=== PATIENT | male | born 1955 | race Caucasian/White ===

== ENCOUNTER 2019-05-28 17:00 | Inpatient (IN) | payer MEDICARE, MEDICAID ==
[2019-05-28] MEDS ORDERED: Magnesium Hydroxide (MOM) 30 mL UDC PO PRN (21:10)
[2019-05-28] MEDS ORDERED: Haloperidol Lactate 5 mg/mL 1mL Vial IM ONE (21:17)
--- NOTE | 2019-05-29 07:10 | Psychiatric Evaluation ---
DATE OF SERVICE: 05/29/2019 PSYCHIATRIC INITIAL EVALUATION AND MENTAL STATUS EXAMINATION Age: 63. SEX: Male. PHYSICIAN: Dr. Wilder. CHIEF COMPLAINT: Agitation and aggressive behavior. HISTORY OF PRESENT ILLNESS: The patient is a 63-year-old male with multiple medical issues. The patient was transferred from [facility] to [facility] because of increased agitation and possible depression. The patient has been agitated and the patient was aggressive with the staff and was trying to hit them and yell and scream, when they were trying to help him, he has tried to strike them out. The patient also was striking out at staff at the [facility] where he was living prior to his admission. Also, has been extremely angry. The patient was given emergency injection of Haldol, Ativan and Benadryl to calm him down last night upon admission. The patient is still uncooperative and angry and he was not giving me information except little and the most information obtained from the chart. 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 Also, has a swollen right leg and edematous and it seems that also might have infection there. The patient also has a history of hypertension and hepatitis C, congestive heart failure, gastroesophageal reflux disease, chronic obstructive pulmonary disease and morbid obesity. The patient is living in [facility] in [place] and he has been in angry mood lately. Also, he was having altered speech and altered mental status when he was transferred to [facility]. The patient is still extremely angry and he also seems to be suspicious and paranoid at this time. PAST PSYCHIATRIC HISTORY: The patient seems to have history of depression and the patient is taking Cymbalta. PAST MEDICAL HISTORY: As mentioned above. CHEMICAL DEPENDENCY HISTORY: No reports. PAIN ASSESSMENT: The patient is complaining of pain in different areas of his body, especially his right leg. LEGAL HISTORY: No reports. ABUSE HISTORY: No reports. CURRENT PSYCH MEDICATIONS: Cymbalta 60 mg every day. SOCIAL HISTORY: The patient lives in [facility]. No more information about family or children. FAMILY PSYCHIATRIC HISTORY: No reports. ALLERGIES: No reports. MENTAL STATUS EXAMINATION: The patient appears older than his stated age. Morbidly obese. Anxious. Flat affect. Depressed and irritable mood. Uncooperative. Guarded. Thought processes are with poverty of speech. The patient did not answer question regarding hallucinations or delusions or regarding suicide or homicide, but he is extremely angry and aggressive. Poor insight and poor judgment. The patient is alert and oriented to time, place, person, and situation. Intact immediate, recent and remote memories. ASSESSMENT: PRIMARY DIAGNOSIS: Depressive mood disorder, unspecified, severe, with psychotic features. Rule out bipolar disorder, depressed episode. MEDICAL DIAGNOSES: 1. Above knee amputation of left leg. 2. Hypertension. 3. Hepatitis C. 4. Chronic obstructive pulmonary disease. 5. Gastroesophageal reflux disease. 6. Edema of the right leg with infection. TREATMENT PLAN: We will continue Cymbalta. We will add Seroquel and we will adjust the dose and we will monitor the condition of his blood sugar and monitor his blood sugar. Also, we will continue to monitor his behavior. ESTIMATED LENGTH OF STAY: 5-7 days. PATIENT'S STRENGTHS AND WEAKNESSES: The patient's strength is not clear at this time except that his memory is fair. Weaknesses are his poor judgment and poor impulse control. AFTER DISCHARGE PLAN: The patient will return to the detention, most probably. Also, outpatient treatment and followup will continue as an outpatient. CRITERIA FOR DISCHARGE: Better impulse control and stabilize psychotropic medications and establish outpatient treatment plans. JOB# [id number]
[2019-05-29 08:22] VITALS: BP 146/75
[2019-05-29] MEDS: Sulfamethoxazole/TMP 800/160mg Tab PO SCH ×2 (09:51→17:18)
--- NOTE | 2019-05-29 13:38 | Consultation ---
DATE OF CONSULTATION: 05/29/19 INTERNAL MEDICINE CONSULTATION CHIEF COMPLAINT: Agitation. HISTORY OF PRESENT ILLNESS: I am seeing this patient at the request of psychiatrist for co-medical management. The patient was recently admitted at [facility] for delusions and agitation. The patient has multiple medical problems that need to be managed. The patient has a history of major depression, CHF, hypertension, COPD, transaminitis, back pain, left AKA, hyperglycemia, constipation, insomnia, obesity, GERD. At this time, the patient is somnolent, but has no specific pain. The patient denies any fevers, chills, night sweats, headaches or dizziness. PAST MEDICAL HISTORY: 1. CHF. 2. Hypertension. 3. COPD. 4. Transaminitis. 5. Chronic lumbago. 6. Left AKA. 7. Hyperglycemia. 8. Opiate dependence. 9. Insomnia. 10. Obesity. 11. GERD. PAST SURGICAL HISTORY: As mentioned above. MEDICATIONS: List reviewed. ALLERGIES: None. SOCIAL HISTORY: Tobacco, IV drugs, ETOH negative. REVIEW OF SYSTEMS: Unremarkable. PHYSICAL EXAMINATION: VITAL SIGNS: Temperature is 98.4, pulse 99, respirations 19, blood pressure is 145/77, satting 96% on room air. HEENT: Normocephalic, atraumatic head exam. NECK: Supple. CARDIOVASCULAR: Regular rate and rhythm. LUNGS: Decreased breath sounds. ABDOMEN: Soft, nontender. EXTREMITIES: Has cellulitis of the right leg. ASSESSMENT AND PLAN: 1. Right leg cellulitis. 2. Left above-knee amputation. 3. Chronic obstructive pulmonary disease. 4. Hypertension. 5. Congestive heart failure. 6. Insomnia. 7. Gastroesophageal reflux disease. The patient will be continued on Bactrim double strength b.i.d. The patient will continue with Lasix 40 mg p.o. daily, alcohol management with a psychiatrist. I reviewed the entire medical records. JOB# [id number] ISMAEL
[2019-05-30] MEDS ORDERED: Maalox 30 mL Cup PO PRN (02:46)
[2019-05-30] MEDS ORDERED: Fleet Enema 135 mL RC PRN (07:34)
[2019-05-30] MEDS: Pantoprazole 40 mg EC Tab PO SCH ×2 (08:18→09:30)
[2019-05-30] MEDS ORDERED: CHOLECALCIFEROL 2000 UNIT PO SCH (09:00)
[2019-05-30] MEDS ORDERED: Non-Formulary Item 1 EA (Lactulose [Lactulose] 30 ML) PO SCH (09:00)
[2019-05-30] MEDS ORDERED: LACTOBACILLUS RHAMNOSUS GG PO SCH (09:00)
[2019-05-30] MEDS ORDERED: FLUTICASONE PROPIONATE 16 GM NS SCH (09:00)
[2019-05-30] MEDS ORDERED: POTASSIUM CHLORIDE 10 MEQ PO SCH (09:00)
[2019-05-30] MEDS: Vitamin D3 2,000 IU SGL PO SCH (09:30)
[2019-05-30] MEDS: Aspirin 81mg Chewable Tab PO SCH (09:30)
[2019-05-30] MEDS: Sulfamethoxazole/TMP 800/160mg Tab PO SCH ×2 (09:30→17:02)
[2019-05-30] MEDS: Potassium Chloride 10 mEq ER Tab PO SCH (09:30)
[2019-05-30] MEDS: Lactobacillus Rhamnosus GG 15 Billion CFU CAP.SPRINK PO SCH (09:30)
[2019-05-30] MEDS: Fluticasone Propionate Nasal 1 SPR SPR NS SCH (09:30)
[2019-05-30] MEDS: Lactulose 10 Gm/15 mL 30mL UDC PO SCH ×3 (09:30→20:51)
--- NOTE | 2019-05-30 21:07 | Progress Notes ---
DATE: 05/30/2019 SUBJECTIVE: Staff was spoken to. The patient is interviewed. Mood is noted to be irritable. Affect is constricted. The patient is very dysphoric at this time. The patient is anxious. The patient is reported to have GI bleeding and hence the patient has been ordered by ____ to be transferred to the medical unit for further care. JOB# [id number]
[2019-05-30] MEDS: Hydrocodone/APAP 10 mg/325 mg Tab PO PRN (21:57)
[2019-05-31] MEDS: Hydrocodone/APAP 10 mg/325 mg Tab PO PRN (02:05)
[2019-05-31] MEDS: Fluticasone Propionate Nasal 1 SPR SPR NS SCH (10:00)
[2019-05-31] MEDS: Pantoprazole 40 mg EC Tab PO SCH (10:00)
[2019-05-31] MEDS: Sulfamethoxazole/TMP 800/160mg Tab PO SCH ×2 (10:00→16:13)
[2019-05-31] MEDS: Lactobacillus Rhamnosus GG 15 Billion CFU CAP.SPRINK PO SCH (10:00)
[2019-05-31] MEDS: Aspirin 81mg Chewable Tab PO SCH (10:00)
[2019-05-31] MEDS: Potassium Chloride 10 mEq ER Tab PO SCH (10:00)
[2019-05-31] MEDS: Vitamin D3 2,000 IU SGL PO SCH (10:00)
[2019-05-31] MEDS: Lactulose 10 Gm/15 mL 30mL UDC PO SCH ×3 (10:03→20:53)
--- NOTE | 2019-05-31 10:52 | Progress Notes ---
DATE: 05/31/2019 SUBJECTIVE: Staff was spoken to. The patient is interviewed. Mood is noted to be depressed. Affect is constricted. The patient's insight and judgment are noted to be still impaired. Impulse control is noted to be limited. The patient has been stating that he believes in God, but all he did was trying to get some attention because he could not tolerate being isolative. The patient is stating that because of COVID-19 they have been cleaning the place and they have put two pungent cleaning solutions that made him upset. The patient has been stating that he wants to go back to [facility] when he is stabilized, the patient at this time is being closely monitored for any suicidal gestures. ASSESSMENT: The patient is still depressed. PLAN: To continue the patient with the current medications and followup. JOB# [id number]
[2019-06-01] MEDS: Hydrocodone/APAP 10 mg/325 mg Tab PO PRN ×4 (04:18→23:28)
[2019-06-01] MEDS: Lactulose 10 Gm/15 mL 30mL UDC PO SCH ×3 (08:47→20:45)
[2019-06-01] MEDS: Lactobacillus Rhamnosus GG 15 Billion CFU CAP.SPRINK PO SCH (08:59)
[2019-06-01] MEDS: Sulfamethoxazole/TMP 800/160mg Tab PO SCH ×2 (08:59→16:21)
[2019-06-01] MEDS: Potassium Chloride 10 mEq ER Tab PO SCH (08:59)
[2019-06-01] MEDS: Vitamin D3 2,000 IU SGL PO SCH (08:59)
[2019-06-01] MEDS: Pantoprazole 40 mg EC Tab PO SCH (08:59)
[2019-06-01] MEDS: Aspirin 81mg Chewable Tab PO SCH (09:00)
[2019-06-01] MEDS: Fluticasone Propionate Nasal 1 SPR SPR NS SCH (09:40)
--- NOTE | 2019-06-01 15:16 | Progress Notes ---
DATE: 06/01/2019 SUBJECTIVE: No complaints. No fevers, chills, night sweats. The patient's hemoptysis, resolved. The patient recently went into ER for hemoptysis. Chest x-ray was unremarkable. CBC unremarkable. The patient was sent back to [facility]. OBJECTIVE: VITAL SIGNS: Temperature is 97.7, pulse 80, respirations 20, blood pressure 103/61. HEENT: Normocephalic, atraumatic head exam. NECK: Supple. CARDIOVASCULAR: Regular rate and rhythm. LUNGS: Clear. ABDOMEN: Soft, nontender. ASSESSMENT AND PLAN: 1. Hemoptysis secondary to bronchitis. 2. Left qigih-uop-zivu amputation. 3. Hypertension. 4. Congestive heart failure. 5. Insomnia. 6. Gastroesophageal reflux disease. The patient will continue with Bactrim double strength b.i.d. The patient will continue on Lasix 40 mg daily. The patient will continue on Aldactone 25 daily and the patient's care was discussed with the ER physician at [facility] before transfer. Discussed care plan with nursing staff here. JOB# [id number]
--- NOTE | 2019-06-01 21:16 | Progress Notes ---
DATE: 06/01/2019 PSYCHIATRIC PROGRESS NOTE SUBJECTIVE: Staff was spoken to. The patient is interviewed. Mood is noted to be irritable. Affect is constricted. The patient has been trying to be displaying self-abusive behavior and has been trying to slip from the bed. The patient has been testing the limits constantly. No side effects to the medications are noted. The patient is currently on Cymbalta 60 mg on a daily basis. The patient's power of family law attorney has called. Her name is Charito Farley and she had called me from #[phone]. She is stating that she is more concerned about the safety of the patient. The patient has constantly been trying to test the limits wherever he goes and she states that he already has her ____ and she cannot take care of the patient and the patient wants to seek attention. She is saying that she wants the patient to be observed prior to discharge him back to the facility. ASSESSMENT: The patient is still impulsive. PLAN: To continue the patient with the supportive therapy, encouraged the patient to verbalize the concerns rather than to act out. JOB# [id number]
[2019-06-02] MEDS: Lactulose 10 Gm/15 mL 30mL UDC PO SCH ×3 (09:02→21:14)
[2019-06-02] MEDS: Aspirin 81mg Chewable Tab PO SCH (09:02)
[2019-06-02] MEDS: Lactobacillus Rhamnosus GG 15 Billion CFU CAP.SPRINK PO SCH (09:02)
[2019-06-02] MEDS: Potassium Chloride 10 mEq ER Tab PO SCH (09:03)
[2019-06-02] MEDS: Vitamin D3 2,000 IU SGL PO SCH (09:03)
[2019-06-02] MEDS: Sulfamethoxazole/TMP 800/160mg Tab PO SCH ×2 (09:03→17:05)
[2019-06-02] MEDS: Fluticasone Propionate Nasal 1 SPR SPR NS SCH (09:21)
[2019-06-02] MEDS: Pantoprazole 40 mg EC Tab PO SCH (09:21)
--- NOTE | 2019-06-03 00:26 | Progress Notes ---
DATE: 06/02/2019 SUBJECTIVE: Staff was spoken to. The patient is interviewed. Mood is noted to be irritable. Affect is constricted. The patient is reported to have cellulitis and the patient has been encouraged to seek treatment at the [facility] to contain the cellulitis of the lower extremities because there is some oozing. ____ has encouraged the patient to get to the medical unit, but the patient has been reluctant to go there. The patient has been clearly informed about the consequences of the behavior and reluctance to get the treatment that has been suggested. The patient's DPOA has also been informed about the same. ASSESSMENT: The patient is still impulsive and trying to seek negative attention. PLAN: To continue the patient with the current medications and encouraged the patient to verbalize the concerns rather than to act out. JOB# [id number]
[2019-06-03] MEDS: Hydrocodone/APAP 10 mg/325 mg Tab PO PRN (01:43)
[2019-06-03] MEDS: Fluticasone Propionate Nasal 1 SPR SPR NS SCH (09:46)
[2019-06-03] MEDS: Aspirin 81mg Chewable Tab PO SCH (09:46)
[2019-06-03] MEDS: Vitamin D3 2,000 IU SGL PO SCH (09:46)
[2019-06-03] MEDS: Lactobacillus Rhamnosus GG 15 Billion CFU CAP.SPRINK PO SCH (09:47)
[2019-06-03] MEDS: Potassium Chloride 10 mEq ER Tab PO SCH (09:47)
[2019-06-03] MEDS: Pantoprazole 40 mg EC Tab PO SCH (09:47)
[2019-06-03] MEDS: Lactulose 10 Gm/15 mL 30mL UDC PO SCH ×2 (09:47→13:47)
[2019-06-03] MEDS: Sulfamethoxazole/TMP 800/160mg Tab PO SCH (09:48)
--- NOTE | 2019-06-03 16:14 | Discharge Summary ---
DATE OF DISCHARGE: 06/03/2019 IDENTIFYING DATA: The patient is a 63-year-old male, resident of a [facility] facility. Information obtained by directly interviewing the patient as well as reviewing the admission papers. DIAGNOSES AT THE TIME OF ADMISSION: AXIS I: Depressive disorder, not otherwise specified, rule out bipolar disorder. AXIS II: None. AXIS III: As per Dr. Chay Evans. HISTORY OF PRESENT ILLNESS: Please refer to the 05/29/2019 dictation done. HOSPITAL COURSE AND RESPONSE TO TREATMENT: The patient has been observed on inpatient unit, provided with supportive psychotherapy. The patient has been closely monitored. The patient has been getting easily irritable and trying to seek negative attention by trying to sleep through the side of the bed. The patient has above-knee amputation on the left leg and the right leg started to develop the cellulitis and the patient has been seen by Dr. Chay Dorado on 06/03/2019 and it has been decided to transfer the patient to the [facility] for medical care of this patient. MENTAL STATUS EXAMINATION: At the time of the evaluation, the patient was noted to be anxious. The patient is not suicidal or homicidal. The patient denied hallucinations. No delusions are noted. Insight and judgment are noted to be fair. Initially, the patient has been reluctant to go to the medical unit for care, but later he has changed his mind. The patient is not presenting as a threat to self or others at this time. The patient is motivated to seek treatment. DIAGNOSES AT THE TIME OF THE DISCHARGE: AXIS I: Major depressive disorder, recurrent and moderate. AXIS II: None. AXIS III: Hypertension, hepatitis C, COPD, obesity and gastroesophageal reflux disease, possible cellulitis of the right lower extremity. AFTERCARE PLAN: The patient is transferred to [facility] for further care. JOB# [id number]
== END 2019-06-03 13:45 | disposition short-term general hospital (02) | DRG 885 ==
LOC: GERO 20:32
PROVIDERS: ADMIT Psychiatry & Neurology Psychiatry; ATTEND Psychiatry & Neurology Psychiatry
DX: F33.3 Major depressive disorder, recurrent, severe with psychotic symptoms (principal); I11.0 Hypertensive heart disease with heart failure; B19.20 Unspecified viral hepatitis C without hepatic coma; L03.115 Cellulitis of right lower limb; J44.9 Chronic obstructive pulmonary disease, unspecified; G47.00 Insomnia, unspecified; K21.9 Gastro-esophageal reflux disease without esophagitis; I50.9 Heart failure, unspecified; E66.01 Morbid (severe) obesity due to excess calories; Z68.42 Body mass index [BMI] 45.0-49.9, adult; Z89.612 Acquired absence of left leg above knee
CPT/HCPCS: 82948-90; 83036-90; 87070-90; 87075-90; A4216; J1200; J1630; J2060; Z7610